=== PATIENT | male | born 1965 | race Caucasian/White ===

== ENCOUNTER 2022-07-04 07:16 | Day surgery (SDC) | payer OTHER ==
[~2022-07-04] VITALS: Ht 170.2 cm; Wt 106.6 kg
[2022-07-04] MEDS ORDERED: fentaNYL citrate 0.05 MG/ML VIAL ONE (08:38)
[2022-07-04] MEDS ORDERED: LIDOCAINE 2% 100 MG/5 ML UJET TP ONE (08:38)
[2022-07-04] MEDS ORDERED: fentaNYL citrate 0.05 MG/ML VIAL IVP ONE (09:40)
== END 2022-07-04 09:49 | disposition home or self-care (01) ==
LOC: MOR 07:16 → MMU 07:16 → MOR 09:49
PROVIDERS: ATTEND Internal Medicine Gastroenterology
DX: Z12.11 Encounter for screening for malignant neoplasm of colon (principal); K63.5 Polyp of colon; K57.30 Diverticulosis of large intestine without perforation or abscess without bleeding; E11.9 Type 2 diabetes mellitus without complications; E78.5 Hyperlipidemia, unspecified; Z79.899 Other long term (current) drug therapy; Z20.822 Contact with and (suspected) exposure to COVID-19
CPT/HCPCS: 45385; 87426; J3010